=== PATIENT | female | born 1970 | race Two or more races ===

== ENCOUNTER → 2019-07-08 | Outpatient (CLI) | payer SELFPAY ==
--- NOTE | 2019-07-08 19:30 | RAD ---
Examination: Ultrasound pelvis HISTORY: History of menorrhagia Comparison: None available. Findings: The uterus measures 10.3 x 6.0 x 5.0 cm. The endometrium measures 6 mm in thickness. The right ovary measures 4.1 x 2.5 x 2.4 cm. The left ovary measures 3.1 x 2.5 x 2.7 cm. Blood flow identified in the right left ovaries. There is a 5.5 cm cystic structure identified in the right adnexa, uncertain etiology could be a right paraovarian cyst. IMPRESSION: 1. 5.5 cm cystic structure identified in the right adnexa could be a paraovarian cyst. Cross-sectional imaging with CT can be considered for further evaluation. Electronically signed by: Magno Nj MD (07/08/2019 5:57 PM) [facility]
== END | disposition home or self-care (01) ==
LOC: US 12:29
PROVIDERS: ATTEND Obstetrics & Gynecology
DX: N83.8 Other noninflammatory disorders of ovary, fallopian tube and broad ligament (principal); N92.0 Excessive and frequent menstruation with regular cycle
CPT/HCPCS: 76856

== ENCOUNTER 2019-08-04 09:44 | Day surgery (SDC) | payer SELFPAY ==
[~2019-08-04] VITALS: Ht 152.4 cm; Wt 61.0 kg
[2019-08-04] MEDS ORDERED: ASPI1TAB31 PO (10:21)
[2019-08-04] MEDS ORDERED: IV RINGERS,LACTATED 1000ML 1,000 ML IV SCH (10:30)
[2019-08-04] MEDS ORDERED: BUPIVACAINE-EPI 0.25%-1:200000 MPF 30 ML VIAL. INJ ONE (12:00)
--- NOTE | 2019-08-04 12:23 | PDOC ---
BRIEF OPERATIVE NOTE Date: Aug 04, 2019 Pre-Op Diagnosis 1. ROV CYst 2. Menorrhagia Post-Op Diagnosis Same + Right Paratubal cyst Procedure Performed [facility] Surgeon Dr. Delacruz Anesthesia Type: General Blood Loss 10 ml Specimens Obtained Right fallopian tube and Right Ovary Findings ROV cyst 2 cm size and Right paratubal cyst 5 cm size; nml uterus, nml ELVER, nml Left fallopian tube Complications none Operative Note see dictation JOSEPH DELACRUZ Jr, MD Aug 04, 2019 12:23
--- NOTE | 2019-08-04 12:25 | DISCH ---
DISCHARGE INSTRUCTIONS Condition on Discharge Condition on Discharge: Stable Activity After Discharge Activity Instructions for Disc: Activity as tolerated Lifting Instructions after Dis: No heavy lifting Driving Instructions after Dis: Do not drive today Diet after Discharge Diet after Discharge: Regular Contacting the DRElijah after DC Call your doctor for: Concerns you may have Follow-Up Follow up with: Dr. Delacruz in 1 week. JOSEPH DELACRUZ Jr, MD Aug 04, 2019 12:25
--- NOTE | 2019-08-04 12:30 | OP ---
DATE OF SURGERY: PREOPERATIVE DIAGNOSES: 1. Right ovarian cyst. 2. Menorrhagia. POSTOPERATIVE DIAGNOSES: 1. Right ovarian cyst. 2. Menorrhagia. 3. Right paratubal cyst. PROCEDURE: Laparoscopic RSO. SURGEON: Pavel Delacruz MD ANESTHESIA: GETA. ESTIMATED BLOOD LOSS: 10 mL. COMPLICATIONS: None. FINDINGS: Right ovarian cyst about 2 cm size. Right paratubal cysts up to about 5 cm size uterus was normal. Left ovary was normal. Left fallopian tube was normal. SUMMARY: A 49-year-old with history of menorrhagia as well as a persistent right ovarian cyst. The patient was counseled on the risks, benefits and expectations and voiced clear understanding to proceed for a laparoscopic right salpingo-oophorectomy. DESCRIPTION OF PROCEDURE: The patient was taken to surgery suite and placed in dorsal lithotomy position. She was prepped with Betadine solution for vaginal prep and ChloraPrep for abdominal prep. After adequate anesthesia, bivalve speculum was placed vaginally. The anterior lip of the cervix was grasped with single tooth tenaculum. The bivalve speculum was then removed. Uterine acorn manipulator was placed. Attention was now placed on abdomen. Small transverse skin incision was made just below the umbilicus with a scalpel. The Veress needle was then placed through the infraumbilical incision site. The abdomen was allowed to insufflate up to 1-1/2 liters CO2 gas. The Veress needle was then removed, 5 mm trocar was placed. The scope was positioned. Uterus appeared normal sized with possible fibroids. Left fallopian tube and left ovary appeared normal. The right fallopian tube and ovary demonstrated a 2 cm size cyst on the ovary and a 5 cm size paratubal cyst. Two additional incisions made in left lower quadrant, which one was 5 mm port and the other was an 11 mm port. With aid of graspers and the EndoSeal, the right infundibulopelvic ligament was isolated, coagulated and dissected. The right utero-ovarian pedicle was coagulated and dissected. The remainder of the right adnexa was coagulated and dissected from the pelvic sidewall. This was removed with the aid of Endobag. The area was hemostatic. Suction irrigation was utilized to verify good hemostasis. A small amount of normal saline was left in posterior cul-de-sac. The trocars were then removed under direct visualization. Abdomen was allowed to deflate as much as possible along with mechanical manipulation. The 11 mm port site was closed at the fascial layer using 2-0 Vicryl suture in [id number] manner. The three skin incisions were closed at the skin level using 4-0 Vicryl suture in subcuticular manner. A 0.25% Marcaine with epinephrine was injected at each incision site. The uterine acorn manipulator and single tooth tenaculum were removed. The patient tolerated the procedure well and was taken to recovery room in stable condition. Sponge and needle count correct x 3. PAVEL DELACRUZ MD DR: LISHA/jeanne JOB#: [id number] / [id number]
[2019-08-04] MEDS ORDERED: OXYC1TAB15 PO (12:32)
[2019-08-04] MEDS ORDERED: oxyCODONE/APAP 5/325 1 TAB TABLET PO ONE ×2 (12:45)
[2019-08-04 13:15] VITALS: BP 100/46
--- NOTE | 2019-08-05 15:07 | PATHOLOGY ---
[facility] Accession Number: [id number] . 01 Material submitted: . ovary - RIGHT TUBE AND OVARY. Modifiers: right . 01 Clinical history: . . Right ovarian cyst . 02 Diagnosis: . Ovary and fallopian tube, right, salpingo-oophorectomy: - Ovary with hemorrhagic endometriotic cyst, 2.0 cm. - Fallopian tube with simple paratubal cyst. (SKM/db; 08/05/2019) LBQ 08/05/2019 1439 Local . 02 Electronically signed: . Gurinder Lee MD, Pathologist NPI- [id number] . 01 Gross description: . The specimen is received in formalin, labeled "Flori Xiong, right tube and ovary" and consists of a 19 g right tubo-ovarian complex with fimbriated fallopian tube measuring 5.8 cm in length and 0.8 cm in diameter which is attached to a cystic ovary measuring 3.3 x 2.5 x 2.1 cm. There is a paratubal cyst measuring 3.0 x 2.0 cm showing a smooth pink-tovar cyst lining. Sectioning the ovary reveals multiple corpora albicantia and a hemorrhagic cyst measuring 2.0 x 1.8 cm. [employer] sections are submitted as follows: . A1-A2: Fallopian tube with paratubal cyst A3-A4: Ovary (SDY; 08/04/2019) SYU/SYU 08/04/2019 1612 Local . 02 Pathologist provided ICD-10: N83.201, N83.8 . 02 CPT . 441557 Specimen Comment: A courtesy copy of this report has been sent to Specimen Comment: [phone]. Specimen Comment: Report sent to Performed at: 01 [facility] [address], [place], [place] [id number] MD Pavan Mar MD Phone: [phone] Performed at: 02 [facility] [address], [place] [id number] MD Zia Paz MD Phone: [phone]
== END 2019-08-04 13:20 | disposition home or self-care (01) ==
LOC: SURG 09:44
PROVIDERS: ATTEND Obstetrics & Gynecology
DX: N93.9 Abnormal uterine and vaginal bleeding, unspecified (principal); N80.1 Endometriosis of ovary; N83.201 Unspecified ovarian cyst, right side; N92.0 Excessive and frequent menstruation with regular cycle; G43.909 Migraine, unspecified, not intractable, without status migrainosus; Z98.51 Tubal ligation status; Z90.49 Acquired absence of other specified parts of digestive tract
CPT/HCPCS: 58661; 81025; 88305; A7015; J0690; J7030